=== PATIENT | male | born 1990 | race Caucasian/White ===

== ENCOUNTER 2018-11-30 17:26 | Emergency (ER) | payer OTHER ==
[~2018-11-30] VITALS: Ht 190.5 cm; Wt 81.7 kg
[2018-11-30 17:44] LABS: URINE BILIRUBIN NEGATIVE (Negative); URINE BLOOD 3+ (Negative); URINE CLARITY CLOUDY; URINE COLOR YELLOW; URINE GLUCOSE-RANDOM NEGATIVE (Negative); URINE KETONES NEGATIVE (Negative); URINE NITRITE-REFLEX NEGATIVE (Negative); URINE PROTEIN 1+ (Negative); URINE SPECIFIC GRAVITY >= 1.030 (1.005-1.030); URINE UROBILINOGEN 0.2 E.U./dl (0.2-1.0)
[2018-11-30 17:45] LABS: URINE LEUKOCYTES-REFLEX 2+ (Negative)
[2018-11-30 17:52] LABS: SQUAMOUS 0-3 Few /LPF (0-3); URINE RBC >20 Many /HPF (0-2); URINE WBC-REFLEX >25 Many /HPF (0-5); WBC CLUMPS Many (None Seen)
[2018-11-30 17:53] LABS: BACTERIA-REFLEX >30 Many /HPF (None Seen); CASTS None Seen /LPF (None Seen); CRYSTALS None Seen /LPF (None Seen); MUCUS None Seen strn/LPF (None Seen)
[2018-11-30] MEDS ORDERED: DOXYCYCLINE 10100 MG PO (17:54)
[2018-11-30 18:08] VITALS: BP 132/80
== END 2018-11-30 18:09 | disposition home or self-care (01) ==
LOC: M.ERS 17:26
PROVIDERS: Nurse Practitioner Family
DX: N39.0 Urinary tract infection, site not specified (principal); H53.59 Other color vision deficiencies; N52.9 Male erectile dysfunction, unspecified